=== PATIENT | male | born 1970 | race Caucasian/White ===

== ENCOUNTER 2025-04-11 14:08 | Emergency (ER) | payer SELFPAY ==
[~2025-04-11] VITALS: Ht 175.3 cm; Wt 100.0 kg
[2025-04-11 14:10] VITALS: TEMP 98.5
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
[2025-04-11] MEDS: TETanus/Pertussis (Acell)/Diphther VAC/PF (Tdap-Adult) 0.5ml syringe IMVAC ONE (14:37)
[2025-04-11 14:39] VITALS: BP 181/110; PULSE 90; RESP 18; O2SAT 98
== END 2025-04-11 14:41 ==
LOC: ER 14:09
DX: S00.211A Abrasion of right eyelid and periocular area, initial encounter (principal); R03.0 Elevated blood-pressure reading, without diagnosis of hypertension; X58.XXXA Exposure to other specified factors, initial encounter; Y93.89 Activity, other specified; Y92.89 Other specified places as the place of occurrence of the external cause; Y99.8 Other external cause status
CPT/HCPCS: 99283